=== PATIENT | female | born 1960 | race Caucasian/White ===

== ENCOUNTER 2024-10-07 05:44 | Inpatient (IN) | payer MEDICARE ==
[2024-10-05 14:33] LABS: BASOPHILS % (AUTO) 0.4 % (0-1); EOSINOPHILS # (AUTO) 0.2 X10'3 (0-0.9); EOSINOPHILS % (AUTO) 1.9 % (0-6); LYMPHOCYTES # (AUTO) 2.6 X10'3 (1.1-4.8); LYMPHOCYTES % (AUTO) 23.9 % (21-51); MEAN CORPUSCULAR HEMOGLOBIN 32.2 PG (27.0-31.0); MEAN CORPUSCULAR HGB CONC 34.1 g/dL (33.0-36.5); MEAN CORPUSCULAR VOLUME 94.5 FL (78-98); MEAN PLATELET VOLUME 8.3 FL (7.4-10.4); MONOCYTES # (AUTO) 0.8 X10'3 (0-0.9); MONOCYTES % (AUTO) 6.9 % (2-12); NEUTROPHILS # (AUTO) 7.3 X10'3 (1.8-7.7); NEUTROPHILS % (AUTO) 66.9 % (42-75); PRE OP HEMATOCRIT 42.4 % (35.0-45.0); PRE OP HEMOGLOBIN 14.5 g/dL (12.0-16.0); PRE OP PLATELET COUNT 284 X10'3 (140-440); RED BLOOD COUNT 4.49 X10'6 (4.20-5.60)
[2024-10-05 15:12] LABS: ALBUMIN 3.7 G/DL (3.4-5.0); ALKALINE PHOSPHATASE 102 IU/L (46-116); BLOOD UREA NITROGEN 18 MG/DL (7-18); BUN/CREATININE RATIO 15.8 (10.0-20.0); CALCIUM 9.2 MG/DL (8.5-10.1); CHLORIDE 103 MMOL/L (99-107); CREATININE 1.14 MG/DL (0.40-0.90); PRE OP ALT 29 U/L (30-65); PRE OP ANION GAP 11 (8-16); PRE OP AST 16 U/L (10-37); PRE OP BILIRUB, TOTAL 0.3 MG/DL (0.0-1.0); PRE OP GLUCOSE 146 MG/DL (70-104); PRE OP POTASSIUM 4.1 MMOL/L (3.4-5.1); PRE OP SODIUM 138 MMOL/L (135-145); THYROID STIMULATING HORMONE 1.01 ulU/ml (0.34-4.50); TOTAL CARBON DIOXIDE 23.9 MMOL/L (24-32); TOTAL PROTEIN 7.3 G/DL (6.4-8.2); eGFR 48 ML/MIN
[2024-10-07] VITALS (39 sets, daily range): BP systolic 108–158; BP diastolic 55–88; PULSE 70–88; RESP 10–22; TEMP 97.3–97.9; O2SAT 94–100
[~2024-10-07] VITALS: Ht 165.1 cm; Wt 88.0 kg
[~2024-10-07 05:44] MED LIST: AMIT10TA10 PO; BUPR-122 PO; CALC600T18 PO; CELE-389 PO; DULO60CA65 PO; EST1T PO; LEVO125T PO; OXYB5TAB21 PO
[2024-10-07] MEDS: tranexamic acid 1gm/0.7% sal. 100 ML IV ONE (06:12)
[2024-10-07] MEDS: ceFAZolin 2gm in dextrose, iso 50 ML IV ONE (06:12)
[2024-10-07] MEDS: famotidine 20mg tablet PO ONE (06:29)
[2024-10-07] MEDS: ringers solution, lacted 1,000 ML IV SCH ×2 (06:31→17:58)
[2024-10-07] MEDS: VANCOMYCIN/H2O 1.5g/300mL PB 300 ML IV ONE (06:31)
[2024-10-07] MEDS ORDERED: vancomycin 1,000mg inj ONE (06:51)
[2024-10-07] MEDS ORDERED: tetracaine 1% (10mg/ml) pres. free inj. ONE (07:20)
[2024-10-07] MEDS ORDERED: fentaNYL/PF 50MCG/1 ML 2ML syringe ONE (07:24)
[2024-10-07] MEDS ORDERED: MIDAZolam 1 MG/ML 5ML VIAL ONE ×2 (07:25→08:21)
[2024-10-07] MEDS ORDERED: propofol inj 20 ML IV ONE ×2 (08:20)
[2024-10-07] MEDS ORDERED: meperidine/PF 25mg/ml syringe IV PRN ×2 (09:00)
[2024-10-07] MEDS ORDERED: ROPIVAcaine 0.2% (10 MG/5 ML) BOLUS INJECTION ADDCANAL PRN (09:00)
[2024-10-07] MEDS ORDERED: morphine 2 MG/ML inj. syringe IV PRN (09:00)
[2024-10-07] MEDS ORDERED: acetaminophen 325mg tablet PO PRN (11:15)
[2024-10-07] MEDS ORDERED: naloxone 0.4 mg/ml inj IV PRN (11:15)
[2024-10-07] MEDS ORDERED: diphenhydrAMINE 25mg capsule PO PRN ×2 (11:15)
[2024-10-07] MEDS ORDERED: bisacodyl 10mg suppository rectal RC PRN (11:15)
[2024-10-07] MEDS: ROPIVAcaine 0.2%/PF PUMP/bolus 545 ML ADDCANAL SCH (11:20)
[2024-10-07] MEDS: ROPIVAcaine inj 200 MG, epiNEPHrine inj 0.6 MG, morphine 10mg/ml inj. 5 MG in normal sa... IU ONE (11:23)
[2024-10-07] MEDS ORDERED: ROPIVAcaine 0.5% (5mg/ml) 30ml vial ONE (11:26)
[2024-10-07] MEDS: gabapentin 300mg capsule PO SCH (13:23)
[2024-10-07] MEDS: acetaminophen 325mg tablet PO SCH (13:25)
[2024-10-07] MEDS: oxyCODONE IR 5mg (immed. release) tablet PO PRN (13:51)
[2024-10-07] MEDS: tranexamic acid inj. 880 MG in normal saline 100ml IV soln 91.2 ML IV ONE (13:51)
[2024-10-07] MEDS: ondansetron/PF 4mg/2ml inj IV PRN ×2 (14:06→19:45)
[2024-10-07] MEDS: meperidine/PF 25mg/ml syringe IV PRN (15:43)
[2024-10-07] MEDS: ceFAZolin/D5W- 1GM premix 50 ML IV SCH (15:52)
[2024-10-07] MEDS: proCHLORperazine 10 MG/2 ml inj IV PRN (16:31)
[2024-10-07] MEDS: morphine 4 MG/ML inj SYRINge IV PRN (16:32)
[2024-10-07] MEDS: vancomycin/NS 1 GM ADD-VANTAGE 250 ML IV SCH (19:33)
[2024-10-07] MEDS: sennosides 8.6mg tablet PO SCH (20:15)
[2024-10-08] VITALS: BP 147/81; PULSE 85; O2SAT 94
[2024-10-08] MEDS: HYDROmorphone inj. 0.5 MG/0.5 ML DISP.SYRIN IV PRN (01:24)
[2024-10-08] MEDS: oxyCODONE IR 5mg (immed. release) tablet PO PRN (05:28)
[2024-10-08 06:00] VITALS: BP 142/78; PULSE 86; RESP 13; TEMP 97.9; O2SAT 98
[2024-10-08 08:00] VITALS: RESP 14; O2SAT 96
[2024-10-08] MEDS: enoxaparin 40mg/0.4ml syringe SQ SCH (08:38)
[2024-10-08] MEDS: HYDROmorphone 1 mg/ml syringe IV PRN (12:37)
[2024-10-08] MEDS: ketorolac trometh 30MG/ML vial 30 MG/ML VIAL IV SCH (16:09)
[2024-10-08 18:30] VITALS: BP 149/76; PULSE 89; RESP 16; TEMP 96.7; O2SAT 94
[2024-10-08] MEDS: celeCOXIB 100mg capsule PO SCH (20:02)
[2024-10-08] MEDS: magnesium hydroxide 30ml (MOM) UD suspension PO PRN (20:03)
[2024-10-08 21:04] LABS: BASOPHILS % (AUTO) 0.3 % (0-1); EOSINOPHILS # (AUTO) 0.1 X10'3 (0-0.9); EOSINOPHILS % (AUTO) 0.7 % (0-6); HEMATOCRIT 38.4 % (35.0-45.0); HEMOGLOBIN 12.9 g/dl (12.0-16.0); LYMPHOCYTES % (AUTO) 14.4 % (21-51); MEAN CORPUSCULAR HEMOGLOBIN 31.4 PG (27.0-31.0); MEAN CORPUSCULAR HGB CONC 33.7 g/dL (33.0-36.5); MEAN CORPUSCULAR VOLUME 93.2 FL (78-98); MEAN PLATELET VOLUME 8.5 FL (7.4-10.4); MONOCYTES % (AUTO) 14.7 % (2-12); NEUTROPHILS # (AUTO) 9.6 X10'3 (1.8-7.7); NEUTROPHILS % (AUTO) 69.9 % (42-75); PLATELET COUNT 253 X10'3 (140-440); RED BLOOD COUNT 4.12 X10'6 (4.20-5.60); RED CELL DISTRIBUTION WIDTH 12.8 % (11.5-14.5); WHITE BLOOD COUNT 13.7 X10'3 (4.5-11.0)
[2024-10-08 21:11] LABS: HEMOGLOBIN A1C 5.7 % (4.5-6.2)
[2024-10-08 21:20] LABS: ALANINE AMINOTRANSFERASE 20 U/L (12-78); ALBUMIN 2.7 G/DL (3.4-5.0); ALBUMIN/GLOBULIN RATIO 0.8 (1.1-1.5); ALKALINE PHOSPHATASE 87 IU/L (46-116); ANION GAP 6 (8-16); ASPARTATE AMINO TRANSFERASE 15 U/L (10-37); BILIRUBIN,TOTAL 0.5 MG/DL (0.1-1.0); BLOOD UREA NITROGEN 10 MG/DL (7-18); BUN/CREATININE RATIO 10.9 (10.0-20.0); CALCIUM 8.2 MG/DL (8.5-10.1); CHLORIDE 97 MMOL/L (99-107); CREATININE 0.92 MG/DL (0.40-0.90); GLUCOSE 155 MG/DL (70-104); POTASSIUM 4.2 MMOL/L (3.5-5.1); SODIUM 131 MMOL/L (135-145); TOTAL PROTEIN 6.2 G/DL (6.4-8.2); eCRCL 56 ML/MIN; eGFR 61 ML/MIN
[2024-10-08 22:00] VITALS: BP 126/69; PULSE 89; RESP 13; TEMP 97.8; O2SAT 93
[2024-10-09 06:00] VITALS: BP 112/70; PULSE 74; RESP 13; TEMP 98.3; O2SAT 92
[2024-10-09 08:00] VITALS: RESP 13; O2SAT 92
[2024-10-09 10:00] VITALS: BP 127/66; PULSE 82; RESP 15; TEMP 98.2; O2SAT 95
[2024-10-09 10:04] LABS: BASOPHILS % (AUTO) 0.2 % (0-1); EOSINOPHILS # (AUTO) 0.2 X10'3 (0-0.9); EOSINOPHILS % (AUTO) 1.5 % (0-6); HEMATOCRIT 34.7 % (35.0-45.0); HEMOGLOBIN 11.7 g/dl (12.0-16.0); LYMPHOCYTES # (AUTO) 1.3 X10'3 (1.1-4.8); MEAN CORPUSCULAR HEMOGLOBIN 31.5 PG (27.0-31.0); MEAN CORPUSCULAR HGB CONC 33.8 g/dL (33.0-36.5); MEAN CORPUSCULAR VOLUME 93.2 FL (78-98); MEAN PLATELET VOLUME 8.3 FL (7.4-10.4); MONOCYTES # (AUTO) 1.4 X10'3 (0-0.9); MONOCYTES % (AUTO) 11.2 % (2-12); NEUTROPHILS # (AUTO) 9.4 X10'3 (1.8-7.7); NEUTROPHILS % (AUTO) 76.1 % (42-75); PLATELET COUNT 208 X10'3 (140-440); RED BLOOD COUNT 3.72 X10'6 (4.20-5.60); RED CELL DISTRIBUTION WIDTH 12.6 % (11.5-14.5); WHITE BLOOD COUNT 12.3 X10'3 (4.5-11.0)
[2024-10-09 10:33] LABS: ALANINE AMINOTRANSFERASE 20 U/L (12-78); ALBUMIN 2.5 G/DL (3.4-5.0); ALBUMIN/GLOBULIN RATIO 0.7 (1.1-1.5); ALKALINE PHOSPHATASE 78 IU/L (46-116); ANION GAP 5 (8-16); BILIRUBIN,TOTAL 0.4 MG/DL (0.1-1.0); BLOOD UREA NITROGEN 12 MG/DL (7-18); CALCIUM 8.8 MG/DL (8.5-10.1); CHLORIDE 97 MMOL/L (99-107); CREATININE 0.92 MG/DL (0.40-0.90); GLUCOSE 149 MG/DL (70-104); POTASSIUM 3.7 MMOL/L (3.5-5.1); SODIUM 129 MMOL/L (135-145); TOTAL CARBON DIOXIDE 26.7 MMOL/L (24-32); TOTAL PROTEIN 6.1 G/DL (6.4-8.2); eCRCL 56 ML/MIN; eGFR 61 ML/MIN
[2024-10-09 10:38] LABS: ASPARTATE AMINO TRANSFERASE 19 U/L (10-37)
[2024-10-09] MEDS ORDERED: gabapentin capsule PO (11:20)
[2024-10-09] MEDS ORDERED: SENN-362 PO (11:20)
[2024-10-09 11:54] VITALS: RESP 16
== END 2024-10-09 12:29 | disposition home or self-care (01) | DRG 470 ==
LOC: PAS IN 05:44 → ORTHO 4S 20:00
PROVIDERS: ADMIT Orthopaedic Surgery; ATTEND Orthopaedic Surgery
PROC: 3E0T3BZ Introduction of Anesthetic Agent into Peripheral Nerves and Plexi, Percutaneous Approach (ICD-10-PCS; 2024-10-07)
PROC: 0SRD0J9 Replacement of Left Knee Joint with Synthetic Substitute, Cemented, Open Approach (ICD-10-PCS; principal; 2024-10-07 07:41)
DX: M17.12 Unilateral primary osteoarthritis, left knee (principal); F32.A Depression, unspecified; E03.9 Hypothyroidism, unspecified; F41.9 Anxiety disorder, unspecified; N32.81 Overactive bladder; K59.00 Constipation, unspecified; R73.9 Hyperglycemia, unspecified; D72.829 Elevated white blood cell count, unspecified; Z79.899 Other long term (current) drug therapy; Z90.49 Acquired absence of other specified parts of digestive tract
CPT/HCPCS: 36415; 73560; 80053; 82948; 83036; 84145; 84443; 85025; 87081; 93005; 97116; 97161; 97530; A4215; A4615; A4618; A6212; A6253; A6258; A6446; A6449; A6454; A7000; C1713; C1758; C1776; C9250; G0378; J0171; J0690; J0780; J1171; J1650; J1885; J2175; J2250; J2270; J2274; J2405; J2704; J2795; J3010; J3370; J3372; J3490; J7050; J7120